=== PATIENT | male | born 1965 | race Caucasian/White ===

== ENCOUNTER 2020-02-06 15:01 | Outpatient (CLI) | payer OTHER ==
--- NOTE | 2020-02-06 15:20 | RAD ---
EXAM: 4 views of the left knee HISTORY: Knee pain COMPARISON: None FINDINGS: No knee effusion is seen. There is no evidence of acute fracture or dislocation. No signifi cant degenerative changes are seen. No soft tissue swelling is present. IMPRESSION: No evidence of acute osseous abnormality.
== END 2020-02-06 15:02 | disposition home or self-care (01) ==
LOC: BICRAD 15:01
PROVIDERS: ATTEND Specialist
DX: M25.562 Pain in left knee (principal)

== ENCOUNTER 2020-03-12 15:04 | Outpatient (CLI) | payer OTHER ==
--- NOTE | 2020-03-12 15:43 | RAD ---
XR Chest Pa Lat STANDARD HISTORY: Dyspnea and cough COMPARISON: 08/22/2016 FINDINGS: The heart size is normal. The lungs are well expanded without focal areas of consolidation, pneumothorax or pleural effusions. IMPRESSION: No radiographic evidence of acute cardiopulmonary process.
== END 2020-03-12 15:05 | disposition home or self-care (01) ==
LOC: BICRAD 15:04
PROVIDERS: ATTEND Specialist
DX: R06.00 Dyspnea, unspecified (principal)
CPT/HCPCS: 71046

== ENCOUNTER 2020-10-23 07:53 | Inpatient (IN) | payer OTHER, SELFPAY ==
[2020-10-23] MEDS ORDERED: Nitroglycerin 2% Ointment 1 INCH/1 GM Packet ONE (08:36)
[2020-10-23] MEDS ORDERED: Aspirin Chewable 81 MG TAB ONE (08:36)
[2020-10-23 08:43] LABS: #Basophils 0.1 thou/uL (0.0-0.2); #Eosinphils 0.2 thou/uL (0.0-0.7); #Lymphocytes 1.9 thou/uL (1.20-3.40); #Monocytes 0.8 thou/uL (0.11-0.59); #Neutrophils 5.6 thou/uL (1.40-6.50); %Basophils 0.6 % (0.0-1.0); %Eosinophils 1.9 % (0.0-10.0); %Lymphocytes 22.5 % (21.0-51.0); %Monocytes 8.8 % (0.0-10.0); %Neutrophils 66.1 % (42.0-75.0); Mean Corpuscular HGB CONC 32.4 g/dL (32.0-36.0); Mean Corpuscular Hemoglobin 30.1 pg (27.0-31.0); Mean Corpuscular Volume 92.8 fL (78.0-98.0); Mean Platelet Volume 6.9 fL (7.4-10.4); Platelet Count 246 thou/uL (130-400); RBC Distribution Width 13.7 % (11.5-14.5); Red Blood Cell (RBC) Count 5.65 mill/uL (4.70-6.10); White Blood Cell (WBC) Count 8.5 thou/uL (4.8-10.8)
[2020-10-23 09:08] LABS: ALT (SGPT) 33 U/L (8-55); AST (SGOT) 40 U/L (5-34); Albumin 4.3 g/dL (3.5-5.0); Alkaline Phosphatase 84 U/L (40-110); Anion Gap 14 mmol/L (10-20); BUN (Urea Nitrogen) 12 mg/dL (8.4-25.7); Bilirubin, Total 0.9 mg/dL (0.2-1.2); Calc. Creatinine Clearance 0 mL/min (70-130); Calcium 9.2 mg/dL (7.8-10.44); Carbon Dioxide 25 mmol/L (22-29); Chloride 100 mmol/L (98-107); Globulin 3.1 g/dL (2.4-3.5); Glucose 225 mg/dL (70-105); Lipase 31 U/L (8-78); Potassium 3.9 mmol/L (3.5-5.1); Protein, Total 7.4 g/dL (6.0-8.3); Sodium 135 mmol/L (136-145)
[2020-10-23] MEDS ORDERED: Nitroglycerin 0.4 MG TAB 1 EACH ONE (09:09)
[2020-10-23 09:32] LABS: CKMB 36.8 ng/mL (0-6.6)
[2020-10-23] MEDS ORDERED: Heparin 10,000 UNITS/ 10 ML VIAL ONE ×4 (09:39→13:00)
[2020-10-23] MEDS ORDERED: Lidocaine 1% (PF) 30 ML VIAL ONE (10:22)
[2020-10-23] MEDS ORDERED: Midazolam HCl 2 mg/2 ml Vial ONE (10:32)
[2020-10-23] MEDS ORDERED: Fentanyl 100 MCG/2 ML VIAL ONE ×2 (10:33→12:48)
[2020-10-23] MEDS ORDERED: Nitroglycerin 100MG/250ML BOT 250 ML ONE (10:50)
[2020-10-23] MEDS ORDERED: Ondansetron PF 4 MG/2 ML Vial ONE (11:03)
[2020-10-23] MEDS ORDERED: Atropine Sulfate 1 mg/10 ml Syringe ONE (11:03)
[2020-10-23] MEDS ORDERED: Adenosine 6 MG/2 ML VIAL ONE (11:34)
[2020-10-23] MEDS ORDERED: Verapamil 5 MG/2 ML VIAL ONE (11:34)
[2020-10-23] MEDS ORDERED: TICAGRELOR 90 MG TABLET ONE (11:44)
[2020-10-23] MEDS ORDERED: Hydrocortisone Sod Succ/PF 100 mg/2 ml Vial ONE ×2 (11:55→12:47)
[2020-10-23] MEDS ORDERED: diphenhydrAMINE 50 MG/ML VIAL ONE ×2 (11:55→12:22)
[2020-10-23] MEDS ORDERED: Iopamidol 370 76% 50 ML VIAL FS ONE (11:56)
[2020-10-23] MEDS ORDERED: Iopamidol 370 76% 100 ML VIAL ONE (11:56)
[2020-10-23 13:47] VITALS: BMI 33.7
[2020-10-23] MEDS ORDERED: Nitroglycerin 4.9 GM Bottle SL PRN (15:18)
[2020-10-23] MEDS ORDERED: Acetaminophen 500 MG TAB PO PRN (15:19)
[2020-10-23] MEDS ORDERED: Dextrose 5% in Water 1,000 ML IV PRN (15:30)
[2020-10-23] MEDS ORDERED: Dextrose 50% Abboject 50 ML SYRINGE IVP PRN (15:30)
[2020-10-23 15:31] LABS: SARS-CoV-2 NAA Rapid Test Not Detected (NotDetected)
[2020-10-23] MEDS: Sodium Chloride 0.9% 1,000 ML IV SCH (16:11)
[2020-10-23 16:29] LABS: Troponin I 6.989 ng/mL (< 0.028)
[2020-10-23] MEDS ORDERED: Sodium Chloride 0.9% 300 ML IVPB SCH (17:00)
[2020-10-23] MEDS ORDERED: Fentanyl 100 MCG/2 ML VIAL SLOW IVP SCH (17:00)
[2020-10-23] MEDS: Insulin Regular 300 UNITS/3 ML VIAL SC PRN (17:34)
[2020-10-23] MEDS ORDERED: Fentanyl 100 MCG/2 ML VIAL SLOW IVP PRN (18:41)
[2020-10-23] MEDS ORDERED: Ondansetron PF 4 MG/2 ML Vial SLOW IVP PRN (18:42)
[2020-10-23] MEDS ORDERED: Lorazepam 2 MG/ML VIAL SLOW IVP PRN (18:43)
[2020-10-23] MEDS ORDERED: Sodium Chloride 0.9% 1,000 ML IV SCH (19:00)
[2020-10-23 19:10] LABS: Troponin I 9.526 ng/mL (< 0.028)
[2020-10-23] MEDS ORDERED: Pantoprazole 40 MG VIAL IVP SCH (21:00)
[2020-10-23] MEDS: TICAGRELOR 90 MG TABLET PO SCH (21:08)
[2020-10-23] MEDS: Rosuvastatin 20 MG TAB PO SCH (21:08)
[2020-10-24] MEDS: Sodium Chloride 0.9% 1,000 ML IV SCH ×3 (02:36→12:47)
[2020-10-24 03:45] LABS: Hemoglobin A1c 6.7 % (4.0-6.0)
[2020-10-24 03:59] LABS: ALT (SGPT) 24 U/L (8-55); AST (SGOT) 47 U/L (5-34); Albumin 3.4 g/dL (3.5-5.0); Alkaline Phosphatase 62 U/L (40-110); Anion Gap 10 mmol/L (10-20); BUN (Urea Nitrogen) 9 mg/dL (8.4-25.7); Bilirubin, Total 1.2 mg/dL (0.2-1.2); Calc. Creatinine Clearance 129 mL/min (70-130); Calcium 7.9 mg/dL (7.8-10.44); Carbon Dioxide 23 mmol/L (22-29); Cardiac Risk 3.5 (Less than 4.5); Chloride 107 mmol/L (98-107); Cholesterol 109 mg/dl (< 200 Desired); Globulin 2.4 g/dL (2.4-3.5); Glucose 162 mg/dL (70-105); HDL Cholesterol 31 mg/dL (>60 Neg Risk); LDL Cholesterol, Calculated 43 mg/dL; Potassium 3.4 mmol/L (3.5-5.1); Protein, Total 5.8 g/dL (6.0-8.3); Sodium 137 mmol/L (136-145); Triglycerides 177 mg/dL (Less than 150)
[2020-10-24 04:24] LABS: #Lymphocytes 2.5 thou/uL (1.20-3.40); #Monocytes 1.1 thou/uL (0.11-0.59); #Neutrophils 8.6 thou/uL (1.40-6.50); %Basophils 0.2 % (0.0-1.0); %Eosinophils 0.4 % (0.0-10.0); %Lymphocytes 20.4 % (21.0-51.0); %Monocytes 9.2 % (0.0-10.0); %Neutrophils 69.9 % (42.0-75.0); Mean Corpuscular HGB CONC 33.2 g/dL (32.0-36.0); Mean Corpuscular Hemoglobin 30.8 pg (27.0-31.0); Mean Corpuscular Volume 92.7 fL (78.0-98.0); Platelet Count 240 thou/uL (130-400); RBC Distribution Width 14.1 % (11.5-14.5); Red Blood Cell (RBC) Count 4.54 mill/uL (4.70-6.10); White Blood Cell (WBC) Count 12.3 thou/uL (4.8-10.8)
[2020-10-24] MEDS: Insulin Regular 300 UNITS/3 ML VIAL SC PRN ×4 (06:06→21:01)
[2020-10-24] MEDS ORDERED: HYDROcodone/Acetaminophen 5/325 mg Tablet PO PRN (08:03)
[2020-10-24] MEDS ORDERED: Pantoprazole 40 MG VIAL IVP SCH (09:00)
[2020-10-24] MEDS: Lorazepam 1 MG TAB PO PRN ×2 (09:28→22:46)
[2020-10-24] MEDS: Lisinopril 2.5 MG TAB PO SCH (10:03)
[2020-10-24] MEDS: Aspirin 81 mg Enteric Coated Tablet PO SCH (10:05)
[2020-10-24] MEDS: Alogliptin 25 MG TAB PO SCH (10:06)
[2020-10-24] MEDS: Potassium Chloride 10 MEQ TAB PO SCH ×2 (10:07→20:43)
[2020-10-24] MEDS: TICAGRELOR 90 MG TABLET PO SCH ×2 (10:07→20:43)
[2020-10-24] MEDS ORDERED: cefTRIAXone\\ROCEPHIN 1 GM in Sodium Chloride 0.9% 100 ML IVPB SCH (12:00)
[2020-10-24] MEDS ORDERED: Carvedilol 3.125 MG TAB PO SCH (13:00)
[2020-10-24] MEDS: Carvedilol 3.125 MG TAB PO SCH (17:09)
[2020-10-24] MEDS: Rosuvastatin 20 MG TAB PO SCH (20:43)
[2020-10-24] MEDS ORDERED: Zolpidem Tartrate 5 MG TAB PO SCH (21:00)
[2020-10-25 03:49] LABS: #Eosinphils 0.1 thou/uL (0.0-0.7); #Lymphocytes 2.7 thou/uL (1.20-3.40); #Monocytes 1.5 thou/uL (0.11-0.59); #Neutrophils 8.6 thou/uL (1.40-6.50); %Basophils 0.3 % (0.0-1.0); %Lymphocytes 20.8 % (21.0-51.0); %Monocytes 11.6 % (0.0-10.0); %Neutrophils 66.3 % (42.0-75.0); Hemoglobin 13.7 g/dL (14.0-18.0); Mean Corpuscular HGB CONC 33.2 g/dL (32.0-36.0); Mean Corpuscular Hemoglobin 31.1 pg (27.0-31.0); Mean Corpuscular Volume 93.6 fL (78.0-98.0); Mean Platelet Volume 7.1 fL (7.4-10.4); Platelet Count 221 thou/uL (130-400); RBC Distribution Width 13.9 % (11.5-14.5); White Blood Cell (WBC) Count 12.9 thou/uL (4.8-10.8)
[2020-10-25 04:05] LABS: Anion Gap 13 mmol/L (10-20); BUN (Urea Nitrogen) 10 mg/dL (8.4-25.7); Calc. Creatinine Clearance 131 mL/min (70-130); Calcium 8.6 mg/dL (7.8-10.44); Carbon Dioxide 21 mmol/L (22-29); Chloride 107 mmol/L (98-107); Glucose 147 mg/dL (70-105); Potassium 3.9 mmol/L (3.5-5.1); Sodium 137 mmol/L (136-145)
[2020-10-25] MEDS: Carvedilol 3.125 MG TAB PO SCH ×2 (08:48→16:35)
[2020-10-25] MEDS: Lisinopril 2.5 MG TAB PO SCH (08:48)
[2020-10-25] MEDS: Aspirin 81 mg Enteric Coated Tablet PO SCH (08:48)
[2020-10-25] MEDS: Alogliptin 25 MG TAB PO SCH (08:48)
[2020-10-25] MEDS: TICAGRELOR 90 MG TABLET PO SCH ×2 (08:49→20:58)
[2020-10-25] MEDS: Potassium Chloride 10 MEQ TAB PO SCH ×2 (08:49→20:58)
[2020-10-25] MEDS: Rosuvastatin 20 MG TAB PO SCH (20:58)
[2020-10-25] MEDS ORDERED: Temazepam 15 MG CAP PO SCH (21:00)
[2020-10-26 04:54] LABS: #Eosinphils 0.2 thou/uL (0.0-0.7); #Lymphocytes 2.2 thou/uL (1.20-3.40); #Monocytes 1.2 thou/uL (0.11-0.59); #Neutrophils 8.2 thou/uL (1.40-6.50); %Basophils 0.3 % (0.0-1.0); %Eosinophils 1.7 % (0.0-10.0); %Lymphocytes 18.6 % (21.0-51.0); %Monocytes 10.3 % (0.0-10.0); Hemoglobin 13.9 g/dL (14.0-18.0); Mean Corpuscular HGB CONC 32.9 g/dL (32.0-36.0); Mean Corpuscular Hemoglobin 30.7 pg (27.0-31.0); Mean Corpuscular Volume 93.3 fL (78.0-98.0); Mean Platelet Volume 6.8 fL (7.4-10.4); Platelet Count 227 thou/uL (130-400); RBC Distribution Width 13.7 % (11.5-14.5); Red Blood Cell (RBC) Count 4.54 mill/uL (4.70-6.10); White Blood Cell (WBC) Count 11.9 thou/uL (4.8-10.8)
[2020-10-26 05:15] LABS: Anion Gap 12 mmol/L (10-20); BUN (Urea Nitrogen) 12 mg/dL (8.4-25.7); Calc. Creatinine Clearance 113 mL/min (70-130); Calcium 9.5 mg/dL (7.8-10.44); Carbon Dioxide 24 mmol/L (22-29); Chloride 106 mmol/L (98-107); Glucose 172 mg/dL (70-105); Potassium 4.1 mmol/L (3.5-5.1); Sodium 138 mmol/L (136-145)
[2020-10-26] MEDS: Insulin Regular 300 UNITS/3 ML VIAL SC PRN (06:22)
[2020-10-26] MEDS: Aspirin 81 mg Enteric Coated Tablet PO SCH (08:42)
[2020-10-26] MEDS: Potassium Chloride 10 MEQ TAB PO SCH (08:42)
[2020-10-26] MEDS: Alogliptin 25 MG TAB PO SCH (08:42)
[2020-10-26] MEDS: Carvedilol 3.125 MG TAB PO SCH (08:43)
[2020-10-26] MEDS: TICAGRELOR 90 MG TABLET PO SCH (08:43)
[2020-10-26] MEDS: Lisinopril 2.5 MG TAB PO SCH (08:44)
[2020-10-26 12:05] VITALS: BP 112/75; TEMP 98.8
== END 2020-10-26 15:30 | disposition home or self-care (01) | DRG 247 ==
LOC: ERS 07:53 → CCL 10:13 → CCU 12:30 → 2NO 10-25 13:04
PROVIDERS: ADMIT Specialist; ATTEND Specialist
PROC: 027035Z Dilation of Coronary Artery, One Artery with Two Drug-eluting Intraluminal Devices, Percutaneous Approach (ICD-10-PCS; principal; 2020-10-23)
PROC: 4A023N7 Measurement of Cardiac Sampling and Pressure, Left Heart, Percutaneous Approach (ICD-10-PCS; 2020-10-23)
PROC: B2111ZZ Fluoroscopy of Multiple Coronary Arteries using Low Osmolar Contrast (ICD-10-PCS; 2020-10-23)
PROC: B2151ZZ Fluoroscopy of Left Heart using Low Osmolar Contrast (ICD-10-PCS; 2020-10-23)
DX: I21.4 Non-ST elevation (NSTEMI) myocardial infarction (principal); E11.9 Type 2 diabetes mellitus without complications; Z79.84 Long term (current) use of oral hypoglycemic drugs; F32.9 Major depressive disorder, single episode, unspecified; F41.9 Anxiety disorder, unspecified; I10 Essential (primary) hypertension; F98.8 Other specified behavioral and emotional disorders with onset usually occurring in childhood and adolescence; Z90.49 Acquired absence of other specified parts of digestive tract; G47.33 Obstructive sleep apnea (adult) (pediatric); Z99.89 Dependence on other enabling machines and devices; F17.220 Nicotine dependence, chewing tobacco, uncomplicated; E29.1 Testicular hypofunction; E66.9 Obesity, unspecified; I25.10 Atherosclerotic heart disease of native coronary artery without angina pectoris; Z91.041 Radiographic dye allergy status; Z68.33 Body mass index [BMI] 33.0-33.9, adult
CPT/HCPCS: 36415; 36416; 71045; 76936; 76942; 80048; 80053; 80061; 82553; 83036; 83690; 84443; 84484; 85025; 85347; 85379; 92928; 93005; 93010; 93458; 93798; 93926; 94660; 94760; 96374; 99152; 99153; C1874; C9113; C9600; J0153; J0461; J0690; J0696; J1200; J1644; J1720; J1815; J2001; J2250; J2405; J3010; J3490; J7030; Q9967; U0002

== ENCOUNTER 2022-05-02 09:17 | Outpatient (CLI) | payer OTHER | END 2022-05-02 09:18 | disposition home or self-care (01) | LOC: ULT 09:17 | PROVIDERS: ATTEND Internal Medicine Cardiovascular Disease | DX: I25.10 Atherosclerotic heart disease of native coronary artery without angina pectoris (principal) | CPT/HCPCS: 93926 ==

== ENCOUNTER 2022-10-21 13:27 | Outpatient (CLI) | payer OTHER | END 2022-10-21 13:28 | disposition home or self-care (01) | LOC: BICRAD 13:27 | PROVIDERS: ATTEND Specialist | DX: R06.00 Dyspnea, unspecified (principal) | CPT/HCPCS: 71046 ==